=== PATIENT | female | born 1975 | race Caucasian/White ===

== ENCOUNTER 2017-02-14 13:41 | Emergency (ER) | payer OTHER ==
[~2017-02-14] VITALS: Ht 165.1 cm; Wt 68.0 kg
[~2017-02-14 13:41] MED LIST: GABA100C4 PO; HYDR-3533 PO; METH750T2 PO; PRIL10CA PO
[2017-02-14 13:53] VITALS: BP 159/96; PULSE 106; RESP 15; TEMP 98.2; O2SAT 98
== END 2017-02-14 16:00 | disposition left against medical advice (07) ==
LOC: NED 13:41
DX: S99.921A Unspecified injury of right foot, initial encounter (principal); X58.XXXA Exposure to other specified factors, initial encounter
CPT/HCPCS: 99281

== ENCOUNTER 2017-03-03 10:59 | Emergency (ER) | payer OTHER ==
[~2017-03-03] VITALS: Ht 165.1 cm; Wt 68.0 kg
[2017-03-03 11:02] VITALS: BP 182/91; PULSE 103; RESP 18; TEMP 98.6; O2SAT 100
[2017-03-03] MEDS ORDERED: AMOX500C PO (11:37)
[2017-03-03] MEDS ORDERED: MAGICPED SWISH-SPIT (11:37)
[2017-03-03] MEDS ORDERED: IBUP800T23 PO (11:38)
--- NOTE | 2017-03-03 11:38 | PD ---
HPI Chief Complaint: Cold / Flu Symptoms Time Seen by Provider: 11:36 Travel History International Travel<30 days: No Contact w/Intl Traveler<30days: No Traveled to known affect area: No History of Present Illness HPI 41-year-old female presents to the emergency Department with complaint of sore throat and bilateral ear pain times one week with worsening over the past 2-3 days. Reports MAXIMUM TEMPERATURE of 100.4. Had fever this morning also and took Motrin. Denies lump in throat, difficulty swallowing, unusual drooling. Reports painful swallowing. Reports headache. Denies nausea, vomiting, abdominal pain. Reports nasal congestion. Denies cough. Denies chest pain, shortness of breath. Has only taken Motrin for her symptoms. Dr. Wallace is her primary care provider and she called to try to get into an appointment and they could not see her until March 10. No known allergies. No other modifying factors or associated signs and symptoms. PFSH Past Medical History Arthritis: Yes Diminished Hearing: No Immunizations Current: Yes ?: Not : 3 Para: 2 : 1 Tubal Ligation: Yes Past Surgical History Other Surgery: Yes (surgery on achilles tendon) Social History Alcohol Use: No Tobacco Use: Yes (1 ppd) Substance Use: No Allergies-Medications (Allergen,Severity, Reaction): Coded Allergies: No Known Allergies (Unverified , 03/03/17) Reported Meds & Prescriptions Reported Meds & Active Scripts Active Ibuprofen 800 Mg Tab 800 Mg PO Q6HR PRN Magic Mouthwash Pediatric/Adult Liq (Lidocaine/Diphenhydr/Alum/Mg/Simeth) 60 Ml Susp 5 Ml SWISH-SPIT Q3HR PRN Each 5mL contains: Diphenydramine 4.5mg, Viscous Lidocaine 2% 10mg, Maalox Advanced Regular Strength 2.7ml Amoxicillin 500 Mg Cap 500 Mg PO BID 10 Days Methocarbamol 750 Mg Tab 750 Mg PO TID PRN Reported Prilosec (Omeprazole) 10 Mg Cap 10 Mg PO BID Gabapentin 100 Mg Cap 100 Mg PO BID Lortab 5 mg/325 mg (Hydrocodone/Acetaminophen 5 mg/325 mg) 1 Tab 1 Tab PO Q6H PRN Review of Systems Except as stated in HPI: all other systems reviewed are Neg Physical Exam Narrative GENERAL: Well-nourished, well-developed female patient, in no acute distress SKIN: Warm and dry. No rash. HEAD: Atraumatic. Normocephalic. EYES: Pupils equal and round at 3 mm with brisk reaction. No scleral icterus. No injection or drainage. PERRLA. ENT: Mucosa pink and dry. Pharynx with 1+ tonsils; with erythema, exudate, and edema. No Uvular edema. No uvular, palatal, or tonsillar deviation. Airway patent. Voice is hoarse. EARS: Bilateral pinnae and external canals appear within normal limits. Bilateral tympanic membranes without erythema, dullness or perforation; bulging bilaterally. NECK: Trachea midline. Anterior cervical lymphadenopathy and tenderness. CARDIOVASCULAR: Regular rate and rhythm. No murmur appreciated. RESPIRATORY: No accessory muscle use. Clear to auscultation. Breath sounds equal bilaterally. GASTROINTESTINAL: Abdomen soft, non-tender, nondistended. Hepatic and splenic margins not palpable. Bowel sounds are active 4 quadrants. MUSCULOSKELETAL: No obvious deformities. No clubbing. No cyanosis. No edema. NEUROLOGICAL: Awake and alert. Oriented 3. No obvious cranial nerve deficits. Motor grossly within normal limits. Normal speech. Moves all extremities. PSYCHIATRIC: Appropriate mood and affect; insight and judgment normal. Data Data Last Documented VS Vital Signs Date Time Temp Pulse Resp B/P Pulse Ox O2 Delivery O2 Flow Rate FiO2 03/03/17 11:02 98.6 103 18 182/91 100 Room Air MDM Medical Decision Making Medical Screen Exam Complete: Yes Emergency Medical Condition: Yes Medical Record Reviewed: Yes Differential Diagnosis Exudative pharyngitis, viral pharyngitis, less likely peritonsillar abscess Narrative Course 41-year-old female physical exam consistent with exudative pharyngitis. Reports MAXIMUM TEMPERATURE of 100.4. Denies cough. She has anterior cervical lymphadenopathy and tenderness on palpation. Patient is afebrile nontoxic appearing in the ER. Heart rate recheck on physical exam is approximately 80- 90 bpm. She denies unusual drooling, lumbar throat, difficulty swallowing. Amoxicillin, Magic mouthwash, ibuprofen prescribed for home. Patient verbalizes understanding and agreement with treatment plan. Patient is medically cleared and stable for discharge. Discussed reasons to return to the emergency department. Instructed patient to follow up with primary care provider. Patient agrees with treatment plan. The patients vital signs are stable and the patient is stable for outpatient follow-up and treatment. Patient discharged home, stable and in no acute distress. Diagnosis Primary Impression: Exudative pharyngitis Referrals: Primary Care Physician Patient Instructions: General Instructions, Pharyngitis (ED) Departure Forms: Tests/Procedures, Work Release Enter return to work date: Mar 05, 2017 Additional Instructions: Take Antibiotics as prescribed and complete full course of antibiotics Get plenty of sleep/rest Rest your voice Drink plenty of fluids to prevent dehydration Use warm saltwater gargles to soothe throat pain Use an air humidifier/turn off ceiling fans Use throat lozenges as needed for sore throat Use ibuprofen or acetaminophen as needed to relieve pain and fever Follow-up with your primary care provider within 2-4 days Return immediately to the emergency department with worsening of symptoms Med/Other Pt SpecificInfo: Prescription(s) given Scripts Ibuprofen 800 Mg [id number] Mg PO Q6HR PRN (PAIN) #30 TAB Ref 0 Prov:Elen Baeza 03/03/17 Nbhbhaacgjjmxhl-Bqcrrmupz-Euy-Alum-Simeth Liq (Magic Mouthwash Pediatric/Adult Liq)60 Ml Susp5 Ml SWISH-SPIT Q3HR PRN (SORE THROAT) #60 ML Ref 0 Each 5mL contains: Diphenydramine 4.5mg, Viscous Lidocaine 2% 10mg, Maalox Advanced Regular Strength 2.7ml Prov:Elen Baeza 03/03/17 Amoxicillin 500 Mg [id number] Mg PO BID 10 Days Ref 0 Prov:Elen Baeza 03/03/17 Disposition: 01 DISCHARGE HOME Condition: Stable Elen Baeza Mar 03, 2017 11:38
[2017-03-03] MEDS ORDERED: HYDR-3533 PO (11:53)
[2017-03-03] MEDS ORDERED: MIRA0.12 PO (11:53)
== END 2017-03-03 11:54 | disposition home or self-care (01) ==
LOC: NEPK 10:59
DX: J02.9 Acute pharyngitis, unspecified (principal); F17.200 Nicotine dependence, unspecified, uncomplicated
CPT/HCPCS: 99283

== ENCOUNTER 2018-04-26 23:12 | Emergency (ER) | payer OTHER ==
[~2018-04-26] VITALS: Ht 165.1 cm; Wt 63.5 kg
[~2018-04-26 23:12] MED LIST changes: +AMOX500C PO; -GABA100C4 PO; +IBUP1TAB7 PO; +MAGICPED SWISH-SPIT; -METH750T2 PO; +MIRA0.12 PO; -PRIL10CA PO
[2018-04-26 23:35] VITALS: BP 111/61; PULSE 115; RESP 16; TEMP 100; O2SAT 98
[2018-04-27] MEDS ORDERED: SODIUM CHLOR 0.9% 1000 ML INJ 1,000 ML IV ONE (00:30)
[2018-04-27] MEDS ORDERED: ACETAMINOPHEN 325 MG TAB PO ONE (01:00)
--- NOTE | 2018-04-27 01:02 | RADRPT ---
EXAM DATE: 04/27/2018 12:59 AM EDT AGE/SEX: 42 years / Female INDICATIONS: Fever. CLINICAL DATA: This is the patient's initial encounter. Patient reports that signs and symptoms have been present for 1 day and indicates a pain score of 0/10. MEDICAL/SURGICAL HISTORY: None. None. COMPARISON: No prior [facility] exams available for comparison. FINDINGS: A single AP view of the chest demonstrates the lungs to be symmetrically aerated without evidence of mass, infiltrate or effusion. The cardiomediastinal contours are unremarkable. The bony structures a re grossly intact. CONCLUSION: No acute intrathoracic disease. Electronically signed by: Jamaal Costello MD 04/27/2018 1:01 AM EDT
--- NOTE | 2018-04-27 01:08 | RADRPT ---
EXAM DATE: 04/27/2018 1:05 AM EDT AGE/SEX: 42 years / Female INDICATIONS: Headaches with nausea. CLINICAL DATA: This is the patient's initial encounter. Patient reports that signs and symptoms have been present for 2 weeks and indicates a pain score of 6/10. MEDICAL/SURGICAL HISTORY: . Tubal ligation. RADIATION DOSE: 56.35 CTDI (mGy) COMPARISON: No prior [facility] exams available for comparison. TECHNIQUE: CT of the head without contrast. Using automated exposure control and adjustment of the mA and/or kV according to patient size, radiation dose was kept as low as reasonably achievable to ob tain optimal diagnostic quality images. FINDINGS: Cerebrum: The ventricles are normal for age. No evidence of midline shift, mass lesion, hemorrhage or acute infarction. No extraaxial fluid collections are seen. Posterior Fossa: The cerebellum and brainstem are intact. The 4th ventricle is midline. The cerebe llopontine angle is unremarkable. Extracranial: The visualized portion of the orbits is intact. Skull: The calvaria is intact. No evidence of skull fracture. CONCLUSION: 1. Unremarkable CT scan of the brain. Electronically signed by: Jamaal Costello MD 04/27/2018 1:06 AM EDT
[2018-04-27 01:10] LABS: BILIRUBIN, URINE NEG (NEG); BLOOD, URINE SMALL (NEG); GLUCOSE,URINE NEG (NEG); KETONE, URINE NEG (NEG); MUCUS URINE FEW /lpf (OCC); NITRITE,URINE NEG (NEG); SQUAMOUS EPITHELIAL CELL URINE 13 /hpf (0-5); URINE COLOR YELLOW (YELLW/STRAW); URINE LEUKOCYTE ESTERASE NEG (NEG)
[2018-04-27 01:10] LABS: AUTOMATED NEUTROPHIL # 3.5 TH/MM3 (1.8-7.7); BASOPHIL % 0.6 % (0.0-2.0); EOSINOPHIL # 0.1 TH/MM3 (0-0.4); EOSINOPHIL % 1.6 % (0.0-4.0); HEMATOCRIT 45.4 % (35.0-46.0); HEMOGLOBIN 15.3 GM/DL (11.6-15.3); LYMPH % 42.3 % (9.0-44.0); LYMPHOCYTE # 3.2 TH/MM3 (1.0-4.8); MEAN CELL VOLUME 87.1 FL (80.0-100.0); MEAN CORPUSCULAR HEMOGLOBIN 29.3 PG (27.0-34.0); MEAN CORPUSCULAR HGB CONC 33.6 % (32.0-36.0); MEAN PLATELET VOLUME 7.6 FL (7.0-11.0); MONO % 9.5 % (0.0-8.0); MONOCYTE # 0.7 TH/MM3 (0-0.9); PLATELET COUNT 213 TH/MM3 (150-450); RED BLOOD COUNT 5.21 MIL/MM3 (4.00-5.30); RED CELL DISTRIBUTION WIDTH 13.7 % (11.6-17.2); WHITE BLOOD COUNT 7.6 TH/MM3 (4.0-11.0)
[2018-04-27 01:12] VITALS: BP 114/71; PULSE 91; RESP 18; TEMP 98.7; O2SAT 96
--- NOTE | 2018-04-27 01:28 | PD ---
HPI Chief Complaint: Fever Time Seen by Provider: 23:53 Travel History International Travel<30 days: No Contact w/Intl Traveler<30days: No Traveled to known affect area: No History of Present Illness HPI The patient is a 42 year old female who presents to the [facility] emergency department with a history of reportedly having a daily fever for the last 2 weeks. The patient reports that her temperature is been as high as 102 at home earlier today. She reports that today was the first time that it is been this high. She reports having an associated headache when her temperature goes up. She reports that it is a pressure sensation that moves around her head. She denies having any neck pain or stiffness. She denies having any significant cough, however she does report that when she coughs the pressure in her head is worse. She reports having nausea without vomiting or diarrhea. She reports that today she did have an episode of midepigastric abdominal discomfort. She denies having any constipation. She reports that she last moved her bowels earlier today. She denies having any chest pain, chest pressure, or shortness of breath. She denies having any rashes. She denies having any sore throat. She denies having any dysuria, hematuria, urinary urgency, or frequency. Otherwise on review of systems she denies having any slurred speech, facial droop, difficulty with word finding ability, vision changes, numbness or tingling to her extremities or weakness of her extremities. She denies any IV drug use. She denies any recent dental procedures. [facility] Past Medical History Narrative Medical The patient's past medical history is significant for chronic back pain on hydrocodone for the last 5 years. The patient has a history of insomnia. Arthritis: Yes Diminished Hearing: No Immunizations Current: Yes Tetanus Vaccination: Unknown Influenza Vaccination: No ?: Not LMP: 04/24/18 : 3 Para: 2 : 1 Tubal Ligation: Yes Past Surgical History Narrative Surgical The patient's past surgical history is significant for bilateral tubal ligation , right Achilles tendon repair. Other Surgery: Yes (surgery on R achilles tendon) Social History Alcohol Use: No Tobacco Use: Yes (1 ppd) Substance Use: No Allergies-Medications (Allergen,Severity, Reaction): Coded Allergies: No Known Allergies (Unverified , 03/03/17) Reported Meds & Prescriptions Reported Meds & Active Scripts Active Ibuprofen 800 Mg Tab 800 Mg PO Q6HR PRN Magic Mouthwash Pediatric/Adult Liq (Lidocaine/Diphenhydr/Alum/Mg/Simeth) 60 Ml Susp 5 Ml SWISH-SPIT Q3HR PRN Each 5mL contains: Diphenydramine 4.5mg, Viscous Lidocaine 2% 10mg, Maalox Advanced Regular Strength 2.7ml Amoxicillin 500 Mg Cap 500 Mg PO BID 10 Days Reported Lortab (Hydrocodone-Acetaminophen) 5-325 Mg Tab 1 Tab PO Q6H PRN Mirapex (Pramipexole Dihydrochloride) 0.125 Mg Tab 0.125 Mg PO DAILY Review of Systems Except as stated in HPI: all other systems reviewed are Neg General / Constitutional: Positive: Fever Eyes: No: Visual changes HENT: Positive: Headaches, No: Sore Throat, Rhinorrhea, Congestion, Neck Stiffness, Neck Pain Cardiovascular: No: Chest Pain or Discomfort Respiratory: No: Cough, Shortness of Breath Gastrointestinal: Positive: Nausea, Abdominal Pain, No: Vomiting, Diarrhea, Changes in Bowel Habits, Indigestion, Loss of Appetite Genitourinary: No: Dysuria Musculoskeletal: No: Pain Skin: No Rash, No Itching Neurologic: No: Weakness, Focal Abnormalities, Headache, Change in Mentation, Slurred Speech, Sensory Disturbance Psychiatric: No: Depression Endocrine: No: Polydipsia Hematologic/Lymphatic: No: Easy Bruising Physical Exam Narrative General: The patient is a well-developed well-nourished female in no acute distress. Head and Neck exam: Head is normocephalic atraumatic. Eyes: EOMI, pupils are equal round and reactive to light. Nose: Midline septum with erythematous edematous nasal mucosa with a yellow nasal discharge in the left nare. Mouth: Dentition unremarkable. Moist mucus membranes. Posterior oropharynx is not erythematous. No tonsillar hypertrophy. Uvula midline. Airway patent. Neck: No palpable lymphadenopathy. No nuchal rigidity. No thyromegaly. Cardiovascular: Regular rate and rhythm without murmurs, gallops, or rubs. No pulse deficit to the extremities on simultaneous auscultation and palpation of her radial artery. Lungs: Clear to auscultation bilaterally. No wheezes, rhonchi, or rales. Abdomen: Soft, with midepigastric abdominal tenderness on palpation. No other tenderness on palpation of the other quadrants of the abdomen no guarding, rebound, or rigidity. Normal bowel sounds are audible. No tenderness on palpation of McBurney's point. Negative Quezada sign. Extremities: No clubbing, cyanosis, or edema. 2+ pulses in all 4 extremities. No calf tenderness on palpation. Back: No spinous process tenderness to palpation. No costovertebral angle tenderness to palpation. Neurologic Exam: Cranial nerves 2-12 were intact on exam. Strength is 5/5 in all 4 extremities. No sensory deficits noted. Skin Exam: No rash noted. Intact skin that is warm and dry. Data Data Last Documented VS Vital Signs Date Time Temp Pulse Resp B/P (MAP) Pulse Ox O2 Delivery O2 Flow Rate FiO2 04/27/18 01:12 98.7 91 18 114/71 (85) 96 Room Air Orders Orders Electrocardiogram (04/27/18:) Complete Blood Count With Diff (04/27/18:) Comprehensive Metabolic Panel (04/27/18) Blood Culture (04/27/18) C-Reactive Protein (Crp) (04/27/18:) Lipase (04/27/18:) Urinalysis - C+S If Indicated (04/27/18) Magnesium (Mg) (04/27/18:) Thyroid Stimulating Hormone (04/27/18:) Chest, Single Ap (04/27/18:) Iv Access Insert/Monitor (04/27/18:) Ecg Monitoring (04/27/18) Oximetry (04/27/18:) Lactic Acid Sepsis Protocol (04/27/18) Sodium Chlor 0.9% 1000 Ml Inj (Ns 1000 M (04/27/18 00:30) Ct Brain W/O Iv Contrast(Rout) (04/27/18:28) Ed Urine Pregnancytest Poc (04/27/18:28) Acetaminophen (Tylenol) (04/27/18 01:00) Labs Laboratory Tests Test 04/27/18 00:45 04/27/18 00:50 Urine Color YELLOW Urine Turbidity HAZY Urine pH 6.0 Urine Specific [place] 1.016 Urine Protein NEG mg/dL Urine Glucose (UA) NEG mg/dL Urine Ketones NEG mg/dL Urine Occult Blood SMALL Urine Nitrite NEG Urine Bilirubin NEG Urine Urobilinogen LESS THAN 2.0 MG/DL Urine Leukocyte Esterase NEG Urine RBC 1 /hpf Urine WBC LESS THAN 1 /hpf Urine Squamous Epithelial Cells 13 /hpf Urine Mucus FEW /lpf Microscopic Urinalysis Comment CULT NOT INDICATED White Blood Count 7.6 TH/MM3 Red Blood Count 5.21 MIL/MM3 Hemoglobin 15.3 GM/DL Hematocrit 45.4 % Mean Corpuscular Volume 87.1 FL Mean Corpuscular Hemoglobin 29.3 PG Mean Corpuscular Hemoglobin Concent 33.6 % Red Cell Distribution Width 13.7 % Platelet Count 213 TH/MM3 Mean Platelet Volume 7.6 FL Neutrophils (%) (Auto) 46.0 % Lymphocytes (%) (Auto) 42.3 % Monocytes (%) (Auto) 9.5 % Eosinophils (%) (Auto) 1.6 % Basophils (%) (Auto) 0.6 % Neutrophils # (Auto) 3.5 TH/MM3 Lymphocytes # (Auto) 3.2 TH/MM3 Monocytes # (Auto) 0.7 TH/MM3 Eosinophils # (Auto) 0.1 TH/MM3 Basophils # (Auto) 0.0 TH/MM3 CBC Comment DIFF FINAL Differential Comment Blood Urea Nitrogen 9 MG/DL Creatinine 0.70 MG/DL Random Glucose 111 MG/DL Total Protein 7.4 GM/DL Albumin 3.5 GM/DL Calcium Level 8.5 MG/DL Magnesium Level 2.2 MG/DL Alkaline Phosphatase 97 U/L Aspartate Amino Transf (AST/SGOT) 55 U/L Alanine Aminotransferase (ALT/SGPT) 84 U/L Total Bilirubin 0.3 MG/DL Sodium Level 137 MEQ/L Potassium Level 4.5 MEQ/L Chloride Level 105 MEQ/L Carbon Dioxide Level 23.1 MEQ/L Anion Gap 9 MEQ/L Estimat Glomerular Filtration Rate 92 ML/MIN Lactic Acid Level 0.9 mmol/L C-Reactive Protein 3.98 MG/DL Lipase 144 U/L Thyroid Stimulating Hormone 3rd Gen 2.340 uIU/ML [facility] Medical Decision Making Medical Screen Exam Complete: Yes Emergency Medical Condition: Yes Medical Record Reviewed: Yes Differential Diagnosis Acute sinusitis, versus viral syndrome, versus autoimmune disorder Narrative Course During the course of the patient's emergency department visit, the patient's history, examination, and differential diagnosis were reviewed with the patient. The patient was placed on a personnel monitor with oximetry and frequent blood pressure monitoring. The patient had IV access obtained and blood work sent for analysis. The patient had a EKG done on arrival. The patient's EKG shows a sinus rhythm heart rate of 93, QRS duration 86 ms, QTC [address] segment elevation is noted. The patient was initially provided normal saline 1 L IV fluid bolus. Tylenol for fever. The patient's laboratory studies were reviewed and remarkable for a white count of 7.6, hemoglobin 15.3, platelets 213 with 9.5 monocytes, CMP is remarkable for a glucose of 111, AST 55, ALT 84, the patient's mildly elevated LFTs were discussed with the patient. She denies ever having a history of this previously. She denies taking extra Tylenol or pain relievers. She denies any alcohol use. She denies any prior history of hepatitis or any risk factors for hepatitis. The patient is given a copy of her laboratory studies. Carmencita has an appointment scheduled with her primary care physician in 2 days. She was instructed to follow-up with her primary care physician regarding this. Patient 's TSH is within normal limits, lipase within normal limits, C-reactive protein is elevated at 3.98, lactic acid 0.9, urinalysis shows hazy urine small blood, few mucus, culture not indicated. Radiology studies were reviewed and remarkable for Last Impressions Head CT 04/27/1827 Signed Impressions: CONCLUSION: 1. Unremarkable CT scan of the brain. Chest X-Ray 04/27/1827 Signed Impressions: CONCLUSION: No acute intrathoracic disease. The patient is noted to have some nasal congestion on pressure headache associated with her fever, the patient will be given a presumptive diagnosis of acute sinusitis. Other possibilities for the patient's fever and headache could be a viral syndrome. Due to the prolonged nature of the illness, the patient will be treated with antibiotic. The patient will be given a prescription for Augmentin. The patient reports that she does already have an appointment scheduled for follow-up with her primary care physician for April 29. She is encouraged to keep the appointment for follow-up and recheck. The patient is resting comfortably and feels better, is alert and in no distress. The patient's results and examination findings were discussed with the patient. The repeat examination is unremarkable and benign. The history, exam, diagnostic testing, and current condition do not suggest any significant pathology to warrant further testing, continued ED treatment, admission, or surgical evaluation at this point. The vital signs have been stable. The patient does not have uncontrollable pain, intractable vomiting, or other significant symptoms. The patient's condition is stable and appropriate for discharge. The patient will pursue further outpatient evaluation with a primary care physician or other designated or consulting physician as indicated in the discharge instructions. The patient is instructed to report back to the emergency department immediately for reexamination in the mean time if she develops any new or worsening signs or symptoms. The patient expressed understanding and was agreeable with this plan. Diagnosis Primary Impression: Fever Qualified Codes: R50.9 - Fever, unspecified Additional Impressions: Headache Qualified Codes: R51 - Headache Elevated liver enzymes Referrals: Primary Care Physician 2 days Patient Instructions: Fever in Adults (ED), General Headache (ED), General Instructions Additional Instructions: Follow-up with your primary care physician regarding your mildly elevated liver function tests. The patient was given a copy of her laboratory studies at discharge today. Med/Other Pt SpecificInfo: Prescription(s) given Scripts Amoxicillin-Clavulanate (Augmentin) 875-125 Mg Tab 1 TAB PO BID for Infection, #20 TAB 0 Refills Prov: Paula Oconnor MD 04/27/18 Disposition: 01 DISCHARGE HOME Condition: Stable Paula Oconnor MD Apr 27, 2018 01:28
[2018-04-27 01:33] LABS: ALBUMIN 3.5 GM/DL (3.4-5.0); ALKALINE PHOSPHATASE 97 U/L (45-117); ALT (GPT) 84 U/L (10-53); AST (GOT) 55 U/L (15-37); BICARBONATE 23.1 MEQ/L (21.0-32.0); BLOOD UREA NITROGEN 9 MG/DL (7-18); C-REACTIVE PROTEIN 3.98 MG/DL (0.00-0.30); CALCIUM 8.5 MG/DL (8.5-10.1); CHLORIDE 105 MEQ/L (98-107); GLOMERULAR FILTRATION RATE 92 ML/MIN (>89); GLUCOSE,RANDOM 111 MG/DL (74-106); MAGNESIUM 2.2 MG/DL (1.5-2.5); SODIUM (NA) 137 MEQ/L (136-145); TOTAL BILIRUBIN ADULT 0.3 MG/DL (0.2-1.0); TOTAL PROTEIN 7.4 GM/DL (6.4-8.2)
[2018-04-27] MEDS ORDERED: AUGM875T3 PO (02:28)
--- NOTE | 2018-04-27 09:27 | EKG ---
Date Performed: 04/27/2018 Time Performed: 01:21:57 PTAGE: 42 years EKG: Sinus rhythm NORMAL ECG PREVIOUS TRACING : 08/25/2014 18.43 Since the previous tracing, no significant change noted DOCTOR: Phil Rosa Interpretating Date/Time 04/27/2018 09:25:44
== END 2018-04-27 02:47 | disposition home or self-care (01) ==
LOC: NEPC 23:12
DX: R50.9 Fever, unspecified (principal); R51 Headache; R74.8 Abnormal levels of other serum enzymes; M19.90 Unspecified osteoarthritis, unspecified site; F17.200 Nicotine dependence, unspecified, uncomplicated
CPT/HCPCS: 70450; 71045; 80053; 81001; 83605; 83690; 83735; 84443; 84703; 85025; 86140; 87040; 93005; 96360; 99285; J7030